=== PATIENT | male | born 1955 | race Caucasian/White ===

== ENCOUNTER 2018-01-10 10:53 | Observation (INO) | payer MEDICAID ==
[2018-01-10 11:23] VITALS: RESP 18
[2018-01-10 11:26] VITALS: BMI 27.4
--- NOTE | 2018-01-10 11:55 | ED PDOC ---
Arrival/HPI - General Chief Complaint: Back Pain Time Seen by Provider: 01/10/18 11:47 Historian: Patient - History of Present Illness Narrative History of Present Illness (Text): 01/10/18 11:49 62 year old male, with past medical history of hypertension, hypercholesterolemia, and PTC w. stents, presents to the Emergency department complaining of bilateral lower flank discomfort since 1 week. Patient informs worsening pain with movement especially when bending down and turning left and right. As per patient pain is greater on the right side but denies radiation down the lower extremity or the abdomen. Patient informs similar symptoms in the past which resolved spontaneously. Patient denies any fever, chills, nausea , vomiting, diarrhea, abdominal pain, dysuria, hematuria, urinary output changes , constipation, chest pain, shortness of breath or any other complaints. PMD: Dr. Petty Applications Development Consultant: Ayush Garzon MD. Time/Duration: 1 week Symptom Onset: Gradual Symptom Course: Unchanged Quality: Aching Activities at Onset: Light Context: Home Past Medical History - Provider Review Nursing Documentation Reviewed: Yes - Infectious Disease Hx of Infectious Diseases: None - Tetanus Immunization Tetanus Immunization: Unknown - Past Medical History Past Medical History: No Previous - Cardiac Hx Cardiac Disorders: Yes - Pulmonary Hx Respiratory Disorders: No - Neurological Hx Neurological Disorder: No - HEENT Hx HEENT Disorder: No - Renal Hx Renal Disorder: No - Endocrine/Metabolic Hx Endocrine Disorders: No - Hematological/Oncological Hx Blood Disorders: No - Integumentary Hx Dermatological Disorder: No - Musculoskeletal/Rheumatological Hx Musculoskeletal Disorders: No - Gastrointestinal Hx Gastrointestinal Disorders: Yes Hx Gastroesophageal Reflux: Yes - Genitourinary/Gynecological Hx Genitourinary Disorders: No - Psychiatric Hx Psychophysiologic Disorder: No Hx Substance Use: No - Past Surgical History Past Surgical History: No Previous - Surgical History Hx Angioplasty: Yes (3 stent 2 years ago) Hx Coronary Stent: Yes - Anesthesia Hx Anesthesia: Yes Hx Anesthesia Reactions: No Hx Malignant Hyperthermia: No - Suicidal Assessment Feels Threatened In Home Enviroment: No Family/Social History - Physician Review Nursing Documentation Reviewed: Yes Family/Social History: No Known Family HX Smoking Status: Heavy Smoker > 10 Cigarettes Daily Hx Alcohol Use: No Hx Substance Use: No Hx Substance Use Treatment: No Allergies/Home Meds Allergies/Adverse Reactions: Allergies No Known Allergies Allergy (Verified 01/10/18 15:45) Home Medications: Home Meds Medication Instructions Recorded Confirmed Aspirin [Adult Low Dose Aspirin EC] 81 mg PO DAILY 08/09/15 01/10/18 Simvastatin [Zocor] 20 mg PO DAILY 08/09/15 01/10/18 Clopidogrel [Plavix] 75 mg PO DAILY 08/14/15 01/10/18 Carvedilol [Coreg] 3.125 mg PO DAILY 01/10/18 01/10/18 Famotidine [Pepcid] 20 mg PO DAILY 01/10/18 01/10/18 Review of Systems - Physician Review All systems were reviewed & negative as marked: Yes - Review of Systems Constitutional: absent: Fevers Respiratory: absent: SOB Cardiovascular: absent: Chest Pain Gastrointestinal: absent: Abdominal Pain, Constipation, Diarrhea, Nausea, Vomiting Genitourinary Male: absent: Dysuria, Hematuria, Urinary Output Changes Musculoskeletal: Back Pain (bilateral lower flank discomfort) Physical Exam - Physical Exam Narrative Physical Exam (Text): 01/10/18 11:57 Gen: VS reviewed, alert, well developed, well nourished, nontoxic, mild distress ENT: normal pharynx Eye: EOMI, PERRL Neck: no JVD, supple, no adenopathy CV: regular rate, regular rhythm, no rubs,no murmur, no gallops, S1, S2, pulses equal and strong Pulm: no distress, clear to auscultation, no wheeze, no rhonchi, breath sounds equal, no rales Abd: soft, nontender, no guarding, no rebound, no rigidity, normal bowel sounds Back: Bilateral CVA tenderness, worse on the right. Ext: no edema Skin: good color, no rash, no cyanosis Psych: responds appropriately to questions, normal affect Neuro: oriented x3, CN2-12 intact grossly, motor intact, sensation intact Vital Signs Reviewed: Yes Vital Signs Temp Pulse Resp BP Pulse Ox 01/10/18 14:57 64 18 138/79 98 01/10/18 13:01 60 18 142/86 98 01/10/18 12:15 74 18 134/79 98 01/10/18 11:22 97.6 F 80 18 136/82 97 Temperature: Afebrile Blood Pressure: Normal Pulse: Regular Respiratory Rate: Normal Appearance: Positive for: Well-Appearing, Non-Toxic, Comfortable Pain Distress: Mild Mental Status: Positive for: Alert and Oriented X 3 Medical Decision Making ED Course and Treatment: 01/10/18 11:58 Impression: 62 year old male presents to the Emergency department for bilateral flank discomfort since 1 week. Plan: -- CT of Abdomen/Pelvis -- Toradol -- Labs -- Urinalysis -- Reassess and disposition Prior Visits: Notes and results from previous visits were reviewed. Progress Notes: 01/10/18 12:00 patient was seen for acute on chronic back pain, patient reports he has experienced pain in the past which has resolved spontaneously, pain is bilateral and most consistent with MSK pain, will get CT to rule out possibility of renal colic and possible vertebral body fx. 01/10/18 12:48 CT of Abdomen/Pelvis reviewed by radiologist at 12:45, shows: Presumable left renal dromedary hump. Recommend correlation with contrast- enhanced CT scan or MRI. No renal calculus or hydronephrosis. 01/10/18 13:[address] Petty, who is aware and agrees with Emergency department management plan, accepts patient under his service for further observation. Will work patient up for renal cancer in light of pain and hematuria. He has requested a CT order routinely for admission. 01/10/18 14:09 Dr. Petty states he will follow up with CT result. Patient is aware of indication of admission and is willing to stay. Reassessment Condition: Improved - Lab Interpretations Lab Results: 01/10/18 12:15 01/10/18 12:15 Lab Results 01/10/18 12:15: Sodium 142, Potassium 4.1, Chloride 108 H, Carbon Dioxide 25, Anion Gap 13, BUN 8, Creatinine 0.6 L, Est GFR ( Amer) > 60, Est GFR (Non -Af Amer) > 60, Random Glucose 95, Calcium 9.3, Total Bilirubin 0.4, AST 29, ALT 34, Alkaline Phosphatase 40, Total Protein 7.4, Albumin 4.2, Globulin 3.2, Albumin/Globulin Ratio 1.3 01/10/18 12:15: Urine Color Yellow, Urine Appearance Clear, Urine pH 6.0, Ur Specific [place] <= 1.005, Urine Protein Negative, Urine Glucose (UA) Negative, Urine Ketones Negative, Urine Blood Small H, Urine Nitrate Negative, Urine Bilirubin Negative, Urine Urobilinogen 0.2, Ur Leukocyte Esterase Negative, Urine RBC 0 - 2, Urine WBC Negative, Ur Epithelial Cells 0 - 2, Urine Bacteria Few 01/10/18 12:15: WBC 9.2, RBC 5.99, Hgb 17.0, Hct 49.2, MCV 82.1, MCH 28.4, MCHC 34.6, RDW 15.1 H, Plt Count 365, MPV 8.8, Gran % 42.9 L, Lymph % (Auto) 45.4 H, [place] % (Auto) 7.0 H, Eos % (Auto) 4.4, Baso % (Auto) 0.3, Gran # 3.94, Lymph # ( Auto) 4.2 H, [place] # (Auto) 0.7 H, Eos # (Auto) 0.4, Baso # (Auto) 0.03 - RAD Interpretation Radiology Orders: 01/10/18 11:48 ABDOMEN & PELVIS [ABD & PELVIS W/O PO OR IV CONT] [CT] Stat 01/10/18 14:04 ABDOMEN & PELVIS [ABD & PELVIS IV CONTRAST ONLY] [CT] Routine Agricultural Equipment Salesperson: Radiologist - Medication Orders Current Medication Orders: Discontinued Medications Ketorolac Tromethamine (Toradol) 30 mg IVP STAT STA Stop: 01/10/18 11:50 Last Admin: 01/10/18 12:11 Dose: 30 mg MAR Pain Assessment Document 01/10/18 12:11 OCS (Rec: 01/10/18 12:12 [id number] Pain Reassessment Is this a pain reassessment? Yes Sleep Is patient sleeping during reassessment? No Presence of Pain Presence of Pain Yes Pain Scale Used Pain Scale Used Numeric Location Left, Right or Bilateral Bilateral Upper or Lower Lower Pain Location Body Site Back Description Description Constant Intensity of Pain at present 10 Radiation Location RL Abdomen Aggravating Factors ADL's IVP Administration Document 01/10/18 12:11 OCS (Rec: 01/10/18 12:12 [id number] Charges for Administration # of IVP Administrations 1 - Scribe Statement The provider has reviewed the documentation as recorded by the Scribe Perico Wells. All medical record entries made by the Scribe were at my direction and personally dictated by me. I have reviewed the chart and agree that the record accurately reflects my personal performance of the history, physical exam, medical decision making, and the department course for this patient. I have also personally directed, reviewed, and agree with the discharge instructions and disposition. Disposition/Present on Arrival - Present on Arrival Any Indicators Present on Arrival: No History of DVT/PE: No History of Uncontrolled Diabetes: No Urinary Catheter: No History of Decub. Ulcer: No History Surgical Site Infection Following: None - Disposition Have Diagnosis and Disposition been Completed?: Yes Diagnosis: Hematuria Disposition Time: 16:08 Patient Problems: Current Active Problems Problem Status Onset Hematuria Acute Condition: GOOD
[2018-01-10 12:32] LABS: URINE BILIRUBIN NEGATIVE (NEGATIVE); URINE BLOOD SMALL (NEGATIVE); URINE GLUCOSE (UA) NEGATIVE (NEGATIVE); URINE LEUKOCYTE ESTERASE NEGATIVE Leu/uL (NEGATIVE); URINE PROTEIN NEGATIVE mg/dL (<30 mg/dL); URINE UROBILINOGEN 0.2 E.U./dL (<1 E.U./dL)
[2018-01-10 12:34] LABS: BASO # 0.03 K/mm3 (0.0-2.0); BASO % 0.3 % (0.0-3.0); EOS # 0.4 (0.0-0.7); EOS % 4.4 % (1.5-5.0); GRAN # 3.94 (1.4-6.5); GRAN % 42.9 % (50.0-68.0); LYMPH # 4.2 (1.2-3.4); LYMPH % 45.4 % (22.0-35.0); MEAN CELL VOLUME 82.1 fl (80.0-105.0); MEAN CORPUSCULAR HEMOGLOBIN 28.4 pg (25.0-35.0); MEAN CORPUSCULAR HGB CONC 34.6 g/dl (31.0-37.0); MEAN PLATELET VOLUME 8.8 fl (7.0-11.0); MONO # 0.7 (0.1-0.6); RBC 5.99 10^6/uL (3.5-6.1); RED CELL DISTRIBUTION WIDTH 15.1 % (11.5-14.5); WHITE BLOOD COUNT 9.2 10^3/ul (4.5-11.0)
[2018-01-10 12:39] LABS: URINE APPEARANCE CLEAR (CLEAR); URINE COLOR YELLOW (YELLOW)
[2018-01-10 12:43] LABS: ALB/GLOB RATIO 1.3 (1.1-1.8); ALBUMIN 4.2 g/dL (3.0-4.8); ALT/SGPT 34 U/L (7-56); AST/SGOT 29 U/L (17-59); BLOOD UREA NITROGEN 8 mg/dL (7-21); CALCIUM 9.3 mg/dL (8.4-10.5); GFR AFRICAN-AMERICAN > 60; GFR NON-AFRICAN AMERICAN > 60
[2018-01-10 12:46] LABS: URINE BACTERIA FEW (NEG); URINE EPITHELIAL CELLS 0 - 2 /hpf (0-5); URINE RBC 0 - 2 /hpf (0-2); URINE WBC NEGATIVE /hpf (0-6)
--- NOTE | 2018-01-10 12:46 | CT ---
PROCEDURE: CT Abdomen and Pelvis without intravenous contrast HISTORY: flank pain COMPARISON: None. TECHNIQUE: Technique. Contrast dose: Radiation dose: Total exam DLP = mGy-cm. This CT exam was performed using one or more of the following dose reduction techniques: Automated exposure control, adjustment of the mA and/or kV according to patient size, and/or use of iterative reconstruction technique. FINDINGS: LOWER THORAX: Unremarkable. LIVER: Unremarkable. No gross lesion or ductal dilatation. GALLBLADDER AND BILE DUCTS: Unremarkable. PANCREAS: Unremarkable. No gross lesion or ductal dilatation. SPLEEN: Unremarkable. ADRENALS: Unremarkable. No mass. KIDNEYS AND URETERS: Presumable left renal dromedary hump. . No hydronephrosis. No solid mass. VASCULATURE: Unremarkable. No aortic aneurysm. BOWEL: Unremarkable. No obstruction. No gross mural thickening. APPENDIX: Unremarkable. Normal appendix. PERITONEUM: Unremarkable. No free fluid. No free air. LYMPH NODES: Unremarkable. No enlarged lymph nodes. BLADDER: Unremarkable. REPRODUCTIVE: Unremarkable. BONES: No acute fracture. OTHER FINDINGS: None. IMPRESSION: Presumable left renal dromedary hump. Recommend correlation with contrast-enhanced CT scan or MRI. No renal calculus or hydronephrosis.
[2018-01-10] MEDS ORDERED: Oxycodone/Acetaminophen 5/325 mg Tab PO PRN (16:39)
[2018-01-10 17:09] VITALS: PULSE 69
[2018-01-10 17:10] VITALS: BP 152/94
--- NOTE | 2018-01-10 17:19 | CT ---
PROCEDURE: CT Abdomen and Pelvis with contrast HISTORY: abnormal kidney, ? mass COMPARISON: January 10, 2018. Unenhanced CT of the abdomen and pelvis. Attention left kidney likely dromedary hump versus mass. 11/28/2015 abdominal ultrasound. TECHNIQUE: Contrast dose: 100 cc Omnipaque 350. Radiation dose: Total exam DLP = 600.72 mGy-cm. This CT exam was performed using one or more of the following dose reduction techniques: Automated exposure control, adjustment of the mA and/or kV according to patient size, and/or use of iterative reconstruction technique. FINDINGS: LOWER THORAX: Unremarkable. LIVER: Hepatic steatosis. No focal masses. No intrahepatic bile duct dilatation or perihepatic ascites. GALLBLADDER AND BILE DUCTS: Unremarkable. PANCREAS: Unremarkable. No gross lesion or ductal dilatation. SPLEEN: Unremarkable. ADRENALS: Unremarkable. No mass. KIDNEYS AND URETERS: Unremarkable. No hydronephrosis. No solid mass. VASCULATURE: Unremarkable. No aortic aneurysm. BOWEL: Unremarkable. No obstruction. No gross mural thickening. APPENDIX: Normal appendix. PERITONEUM: Unremarkable. No free fluid. No free air. LYMPH NODES: Unremarkable. No enlarged lymph nodes. BLADDER: Unremarkable. REPRODUCTIVE: Unremarkable. BONES: No acute fracture. OTHER FINDINGS: None. IMPRESSION: No significant or acute findings to account for/ related to the clinical presentation. There is no mass identified left kidney. Additional benign and/or incidental findings described above.
[2018-01-10 18:36] VITALS: TEMP 97.6
[2018-01-10] MEDS ORDERED: Pneumococcal 23-Valent Vaccine IM ONE (18:36)
[2018-01-10 18:37] VITALS: O2SAT 97
[2018-01-11] MEDS ORDERED: Pantoprazole 40 mg EC Tab PO SCH (06:00)
--- NOTE | 2018-01-13 01:58 | HP ---
DATE OF EXAM: 01/10/2018 CHIEF COMPLAINT: Main complaint is back and abdominal pain, right sided more than left flank pain. HISTORY OF PRESENT ILLNESS: According to the patient, a 62-year-old male, history of coronary artery disease, hypertension, hypercholesterolemia, compliant with medicines, came in with back pain more on the right side than the left, does not radiate to the leg, pain is more with sitting, get worse in prolonged sitting; otherwise, there is no nausea, no vomiting, no constipation, no luis alberto blood in the stool or urine. No fever, no chills. PAST MEDICAL HISTORY: As I mentioned above, hypertension, hypercholesterolemia, coronary artery disease with stent placement in the past. SOCIAL HISTORY: The patient still smokes. He may be quitting 2 to 3 years ago, but occasionally he smoked. He quit according to him 3 to 4 years ago, but he smoked 1 pack for 42 years. IMMUNIZATIONS: He got influenza vaccines. MEDICATIONS: Medications he takes at home, Coreg 3.125 b.i.d., Pepcid 20 mg daily, Zocor 20 mg daily, Plavix 75 mg daily, aspirin 81 mg daily. REVIEW OF SYSTEMS: Other than the back pain that he came with, there is nothing greatly. No dysuria, no constipation, no nausea, no vomiting, no weight loss, no respiratory distress. Negative review of systems for 9 systems. PHYSICAL EXAMINATION GENERAL: The patient was alert, awake and oriented x3. Seems comfortable after he was given Toradol, seems okay. He has no complaints. VITAL SIGNS: Temperature 98.3, heart rate 69, blood pressure 139/63, respirations 18, sat 98% on room air. HEAD AND NECK: Normal. No JVD. No thyromegaly. CHEST: Clear, good air entry. CARDIAC: First sound and second sound normal. ABDOMEN: Soft, nontender. Mildly obese. EXTREMITIES: No edema. NEUROLOGICAL: Normal. LABORATORY DATA: Urine shows white blood cells negative. Urine rbc's is 0 to 2, and leukocyte esterase 0 to 2. Chemistry noted for sodium 142, potassium 4.1, chloride 108, bicarb 25, BUN 8, creatinine 0.6. Liver function test is normal. Albumin and globulin normal. CBC, white count 9.2, hemoglobin 17, hematocrit 49.2 and platelets is 365. The patient had a CT abdomen without contrast which shows kidney hump. I am going to do according to the report a CT abdomen and pelvis without any contrast, noted for left renal dromedary hump. Recommendation is CT with contrast. No calculus, no hydronephrosis. IMPRESSION AND PLAN: Abdominal pain, acute back and renal pain, etiology unclear. We will admit the patient for observation, CT without contrast, questionable dromedary hump of the left kidney although his pain is more on the right. We are also going to order a CT scan with intravenous contrast, looking into this, I resume his medicines. It does not look like there is any really microscopic hematuria, 0 to 2 red blood cells, but further evaluation as outpatient. The patient also has colonoscopy, he should do that, explained to him significance of getting colonoscopy as outpatient. PLAN: To admit the patient for observation. Resume meds, IV fluids and CT scan of the abdomen and pelvis with IV contrast. We will continue to follow. The patient was seen post contrast, post CT abdomen with IV contrast and seems stable, is comfortable, and he wants to go home. So patient was discharged home to be followed as outpatient. DISCHARGE DIAGNOSES: 1. Flank pain, back pain, acute. 2. Coronary artery disease, hypertension, hypercholesterolemia. PLAN: Follow up as outpatient. Continue all his medicines as it is. Tylenol p.r.n. Follow up in the office within 24 hours. Juliocesar Petty MD
== END 2018-01-10 22:41 | disposition home or self-care (01) ==
LOC: ED 10:53 → ERH 14:12 → 3RSO 15:58
PROVIDERS: ADMIT Internal Medicine; ATTEND Internal Medicine
DX: R31.9 Hematuria, unspecified (principal); M54.9 Dorsalgia, unspecified; E78.00 Pure hypercholesterolemia, unspecified; I10 Essential (primary) hypertension; K21.9 Gastro-esophageal reflux disease without esophagitis; Z79.02 Long term (current) use of antithrombotics/antiplatelets; Z79.82 Long term (current) use of aspirin; Z95.5 Presence of coronary angioplasty implant and graft
CPT/HCPCS: 74176; 74177; 80053; 81001; 85025; 96374; 96376; 99284; G0378; J1885